=== PATIENT | female | born 1990 | race African-American/Black ===

== ENCOUNTER 2016-09-25 02:52 | Emergency (ER) | payer MEDICAID ==
[2016-09-25] MEDS ORDERED: KETOROLAC TROMETHAMINE 10 MG TAB PO ONE (03:09)
[2016-09-25] MEDS ORDERED: ONDANSETRON HCL 4 MG ODT TAB PO ONE (03:09)
--- NOTE | 2016-09-25 03:12 | EDPRACDOC ---
- General Information Chief Complaint: Back Pain Stated Complaint: BACK PAIN, LEG SWELLING Time Seen by Provider: 09/25/16 03:08 Information Source: Patient Mode Of Arrival: Car Home Medications: Home Medications Paroxetine [Paxil] 20 mg PO DAILY 08/04/16 Ondansetron [Zofran Odt] 4 mg PO Q6H PRN #20 tab.rapdis 09/25/16 Allergies/Adverse Reactions: Allergies Allergy/AdvReac Type Severity Reaction Status Date / Time acetaminophen [From Tylenol] Allergy Hives* Verified 08/04/16 21:35 - History of Present Illness Onset: [employer] HPI: PT PRESENTS WITH LOWER LUMBAR PAIN, NAUSEA, AND BILATERAL LEG SWELLING. STATES THIS BEGAN YESTERDAY. STATES SHE HAS HAD SOME DYSURIA AND CHILLS, DENIES FEVER. Pain Location: Reports: Lumbar Pain Radiates To: Reports: None Pain Caused By: Reports: Spontaneous Circumstances: Reports: Unknown Relevant History: Reports: None Currently ?: No Pain Severity: Reports: Moderate Pain Quality: Reports: Sharp, Stabbing Worsened By: Reports: Movement Associated Signs and Symptoms: Reports: Nausea ED Past Medical History - History Reviewed Yes Nurses notes reviewed and agree except as marked - Patient Medical History Cardiac History: Reports: Hypertension GI/ History: Denies: Urinary Tract Infection Psychological History: Denies: Depression - Social Medical History Smoking Status: Never smoker EDM Review of Systems - Review of Systems ROS Negative Except as Marked: Yes All systems reviewed and were negative except as marked - Physical Exam Constitutional: Alert Oriented to: Time, Person, Place Last recorded Vital Signs: Oxygen Pulse Oxygen Saturation O2 Device Oxygen Flow Rate Fraction of Inspired Oxygen ( FIO2) - HEENT Head: Normal ( normocephalic) Eye Exam: Normal (PERRL, EOMI, Sclera white) Oropharynx: Normal (Pharynx:Moist without exudate,Gums-no swelling) Nose: No Symptoms Reported (septum midline) Neck: Normal (FROM, trachea at midline) - Respiratory/Cardiovascular Respiratory: Normal - CTA (BBS clear to auscultation without adventitious sounds ) Cardiovascular: Normal (RRR without murmur, gallop or rub) - GI Auscultation: Normal (NABS) Palpation: Normal (Soft,No rebound or guarding, non distended) Tenderness: Non tender Kramer's Sign: Negative Rectal Exam: Deferred - Musculoskeletal Back: Normal (Non-Tender) Extremities: Normal (Normal tone, Pulses 2+ No cyanosis or edema, FROM) - Integumentary Skin: Normal, Warm, Dry Lymphatics: Normal (no adenopathy) - Neurologic Memory Impaired: Normal Motor Function: Normal (Normal tone, Pulses 2+ No cyanosis or edema, FROM) Cranial Nerve: Normal (CN II-X11 intact sensation, strength 5/5) Cerebellar: Normal Mood Description: Normal Perception: Normal ED Back Exam - Neurologic Motor Deficit: None Reflexes: Normal - Musculoskeletal Cervical: Normal Thoracic: Normal Lumbar: Tender Midline: Normal Paraspinous: Tender Straight Leg Raise: Negative Pelvis: Normal - Differential Diagnosis Musculoskeletal pain - Results 09/25/16 03:20 09/25/16 03:20 Decision Time to Discharge: 04:14 - Departure Disposition: Home Condition: Stable Final Diagnosis: Viral syndrome Instructions: Viral Syndrome Education/Counseling Given To: Patient Education/Counseling Given Regarding: Diagnosis, Treatment, Prognosis, Follow Up Referrals: Javier Swanson MD [Staff Physician] - One Week Prescriptions: Ondansetron [Zofran Odt] 4 mg PO Q6H PRN #20 tab.rapdis PRN Reason: Nausea/Vomiting Additional Instructions: TYLENOL/MOTRIN NEEDED FOR PAIN. INCREASE FLUIDS. FOLLOW UP WITH PCP NEXT WEEK. RETURN TO THE ED FOR WORSENING SYMPTOMS OR CONCERNS
[2016-09-25 03:16] VITALS: BP 122/57; PULSE 75; TEMP 98.9; BMI 27.0
[2016-09-25 03:26] LABS: AUTOMATED BASOPHIL 0.4 % (0-2); AUTOMATED EOSINOPHIL 4.8 % (0-5); AUTOMATED LYMPH 21.3 % (17-44); AUTOMATED MONOCYTE 4.1 % (3-10); AUTOMATED NEUTROPHIL 69.4 % (45-76); MPV 8.4 fL (7.4-10.4)
[2016-09-25 03:37] LABS: RBC/URINE 0-2 (0-5)
[2016-09-25 03:38] LABS: LEUKOCYTES/URINE NEG (NEGATIVE); NITRITE/URINE NEG (NEGATIVE); URINE OCCULT BLOOD NEG (NEG/TRACE)
[2016-09-25 03:41] LABS: BLOOD UREA NITROGEN 14 MG/DL (7-17); CALC CORRECTED 9.4 MG/DL (8.4-10.2); CALCIUM 9.2 MG/DL (8.4-10.2); CALCULATED OSMOLALITY 269 MOs/Kg (270-290); CHLORIDE 104 mEq/L (98-107); GLUCOSE 86 MG/DL (70-99); SODIUM LEVEL 140 mEq/L (137-146); TOTAL PROTEIN 7.1 G/DL (6.3-8.2)
--- NOTE | 2016-09-25 04:06 | DIRPT ---
CLINICAL DATA: Acute onset of lower back pain, right greater than left. Initial encounter. EXAM: LUMBAR SPINE - COMPLETE 4+ VIEW COMPARISON: CT of the abdomen and pelvis performed 07/05/2016 FINDINGS: There is no evidence of fracture or subluxation. Vertebral bodies demonstrate normal height and alignment. Intervertebral disc spaces are preserved. The visualized neural foramina are grossly unremarkable in appearance. The visualized bowel gas pattern is unremarkable in appearance; air and stool are noted within the colon. The sacroiliac joints are within normal limits. IMPRESSION: No evidence of fracture or subluxation along the lumbar spine. Electronically Signed By: Osvaldo Dickinson M.D. On: 09/25/2016 04:03
== END 2016-09-25 04:28 | disposition home or self-care (01) ==
LOC: ED 02:52
DX: B34.9 Viral infection, unspecified (principal)
CPT/HCPCS: 36415; 72110; 80053; 81001; 81025; 85025; 87804; 99282; J3490